=== PATIENT | male | born 1960 | race Caucasian/White ===

== ENCOUNTER 2024-07-25 05:55 | Day surgery (SDC) | payer BC ==
[~2024-07-25 05:55] MED LIST: Lactated Ringers 1,000 ML IV SCH; Morphine 8 MG, EPINEPHrine 0.3 MG, Cefuroxime 750 MG, Ketorolac 30 MG, Sodium Chloride ... PRN; Sodium Chloride 0.9% 10 ML Syringe FLUSH PRN; Sodium Chloride 0.9% 10 ML Syringe FLUSH SCH
[2024-07-25] MEDS: Lactated Ringers 1,000 ML IV SCH (06:15)
[2024-07-25] MEDS ORDERED: Propofol 200 MG/20 ML SDV ONE ×2 (06:35→08:11)
[2024-07-25] MEDS ORDERED: fentaNYL 100 MCG/2 ML SDV ONE (06:36)
[2024-07-25] MEDS ORDERED: ceFAZolin 2 GM Vial ONE ×2 (06:37→08:00)
[2024-07-25] MEDS ORDERED: Dexamethasone 4 MG/ML 5 ML MDV ONE (06:38)
[2024-07-25] MEDS ORDERED: dexmedeTOMIDine HCl 200 MCG/2 ML SDV ONE (06:38)
[2024-07-25] MEDS ORDERED: Ketorolac 30 MG/ML SDV ONE (06:38)
[2024-07-25] MEDS ORDERED: Ropivacaine 0.5% 5 MG/ML 30 ML SDV ONE (06:39)
[2024-07-25] MEDS: oxyCODONE ER 10 MG TAB.ER PO ONE (06:39)
[2024-07-25] MEDS: Pregabalin 25 MG Cap PO ONE (06:40)
[2024-07-25] MEDS: Acetaminophen 325 MG Tab PO ONE (06:40)
[2024-07-25] MEDS ORDERED: EPINEPHrine 1 MG/ML SDV ONE (06:44)
[2024-07-25] MEDS ORDERED: Ondansetron 4 MG/2 ML SDV ONE (07:08)
[2024-07-25] MEDS ORDERED: ePHEDrine 50 MG/ML SDV ONE (08:04)
[2024-07-25] MEDS ORDERED: Phenylephrine 1% 10 MG/ML SDV ONE (08:09)
[2024-07-25] MEDS ORDERED: fentaNYL 100 MCG/2 ML SDV IVPUSH PRN (08:44)
[2024-07-25] MEDS: Morphine 8 MG, EPINEPHrine 0.3 MG, Cefuroxime 750 MG, Ketorolac 30 MG, Sodium Chloride ... PRN (08:59)
[2024-07-25] MEDS: Tranexamic Acid 1,000 MG/10 ML Vial ONE (09:05)
[2024-07-25] MEDS: VANCOmycin 1 GM SDV ONE (09:05)
[2024-07-25] MEDS: Bupivacaine 0.25% 10 ML SDV ONE (09:17)
[2024-07-25] MEDS: Triamcinolone Acetonide 40 MG/ML 1 ML SDV ONE (09:17)
[2024-07-25] MEDS ORDERED: oxyCODONE 5 MG Tab PO PRN (10:13)
[2024-07-25] MEDS: oxyCODONE 5 MG Tab PO PRN (10:22)
== END 2024-07-25 14:56 | disposition home or self-care (01) ==
LOC: JD.SDS 05:55
PROVIDERS: ATTEND Orthopaedic Surgery
DX: M17.12 Unilateral primary osteoarthritis, left knee (principal); I10 Essential (primary) hypertension; I25.10 Atherosclerotic heart disease of native coronary artery without angina pectoris; E78.00 Pure hypercholesterolemia, unspecified; Z79.82 Long term (current) use of aspirin; Z79.899 Other long term (current) drug therapy
CPT/HCPCS: 0055T; 27447; 64447; 73560; 97110; 97116; 97161; A9270; C1713; C1776; J0171; J0665; J0690; J0697; J1100; J1885; J2272; J2371; J2405; J2704; J2795; J3010; J3301; J7120; 01402; J3490